=== PATIENT | female | born 1955 | race Caucasian/White ===

== ENCOUNTER → 2018-07-19 | Day surgery (SDC) | payer OTHER ==
[2018-07-17 12:21] VITALS: BMI 70.2
[~2018-07-19] MED LIST: LACTATED RINGERS 1,000 ML IV SCH; LIDOCAINE 1% 20 ML VIAL (10MG/ML) FOR IV START INTRADERMA ONE; PROPOFOL 10 MG/ML 20 ML VIAL IV ONE
--- NOTE | 2018-07-19 08:31 | P.GSHP ---
History of Present Illness H&P Date: 07/19/18 CHIEF COMPLAINT: Colon screen HISTORY OF PRESENT ILLNESS: The patient is a 62-year-old female who presents for colon screen. Lower endoscopy was offered for further evaluation and management. PAST MEDICAL HISTORY: Please see list. PAST SURGICAL HISTORY: Please see list. MEDICATIONS: Please see list. ALLERGIES: Please see list. SOCIAL HISTORY: No illicit drug use FAMILY HISTORY: No reports of Crohn disease or ulcerative colitis. REVIEW OF ORGAN SYSTEMS: CONSTITUTIONAL: No reports of fevers or chills. PHYSICAL EXAM: VITAL SIGNS: Stable GENERAL: Well-developed pleasant in no acute distress. HEENT: No scleral icterus. Extraocular movements grossly intact. Moist buccal mucosa. NECK: Supple without lymphadenopathy. CHEST: Unlabored respirations. Equal bilateral excursions. CARDIOVASCULAR: Regular rate and rhythm. Distal 2+ pulses. ABDOMEN: Soft, nontender, nondistended. MUSCULOSKELETAL: No clubbing, cyanosis, or edema. ASSESSMENT: 1. Colon screen. PLAN: 1. Recommend proceeding with a lower endoscopy Past Medical History Past Medical History: Cancer, Diabetes Mellitus, Hyperlipidemia, Hypertension Additional Past Medical History / Comment(s): ENDOMETRIAL CANCER History of Any Multi-Drug Resistant Organisms: None Reported Past Surgical History: Hysterectomy, Tubal Ligation Additional Past Surgical History / Comment(s): COLONOSCOPY. BILAT CATARACTS REMOVED Past Anesthesia/Blood Transfusion Reactions: No Reported Reaction Smoking Status: Never smoker - Past Family History Mother Family Medical History: No Reported History Medications and Allergies Home Medications Medication Instructions Recorded Confirmed Type Aspirin [Adult Low Dose Aspirin EC] 81 mg PO DAILY 07/17/18 07/17/18 History Candesartan [Atacand] 16 mg PO DAILY 07/17/18 07/17/18 History Lovastatin [Mevacor] 20 mg PO PC-SUPPER 07/17/18 07/17/18 History glipiZIDE XL [Glucotrol Xl] 20 mg PO DAILY 07/17/18 07/17/18 History metFORMIN HCL ER [Glucophage Xr] 1,000 mg PO BID-W/MEALS 07/17/18 07/17/18 History Allergies Allergy/AdvReac Type Severity Reaction Status Date / Time No Known Allergies Allergy Verified 07/17/18 12:15
[2018-07-19 08:40] LABS: Glucose,Whole Blood 145 mg/dL (75-99)
[2018-07-19 08:42] VITALS: RESP 16; TEMP 97.5
--- NOTE | 2018-07-19 09:13 | P.PCN ---
Date of Procedure: 07/19/18 Description of Procedure: PREOPERATIVE DIAGNOSIS: Personal history of colon polyps Colonoscopy screening. POSTOPERATIVE DIAGNOSIS: Personal history of colon polyps Colonoscopy screening. Diverticulosis, scattered. OPERATION: Colonoscopy to the ileocecal valve and appendiceal orifice. SURGEON: Carli Gonzáles MD. ANESTHESIA: MAC. INDICATIONS: The patient is a 62-year-old female who presents for colonoscopy screening. Last colonoscopy 10 years ago. Benefits and risks were described and informed consent was obtained. DESCRIPTION OF PROCEDURE: The patient had undergone Gatorade, MiraLAX and Dulcolax prep. He had been brought into the operating room and laid in the left lateral decubitus position. After adequate intravenous sedation, the rectum was examined with 2% lidocaine jelly. External hemorrhoids were encountered. The rectal tone was within normal limits. No lesions were palpated in the rectal vault. An Olympus colonoscope was advanced until the ileocecal valve and appendiceal orifice were clearly viewed. The prep was excellent with clear visualization of the mucosal folds. The scope was removed with visualization of each mucosal fold. Sigmoid diverticulosis was encountered. No colonic polyps were found. No evidence of focal colitis was found. Retroflexion of the scope demonstrated grade 1 internal hemorrhoids without active bleeding or inflammation. The colon was desufflated. The patient had tolerated the procedure well. Withdrawal time was over 6 minutes. FINDINGS: Internal hemorrhoids, grade 1 External prolapsed hemorrhoids. No arteriovenous malformations. No adenomatous polyps. No focal colitis. RECOMMENDATIONS: Lower endoscopy in 5 years, 2023 for personal history of colon polyps. Plan - Discharge Summary Discharge Rx Participant: No New Discharge Prescriptions: No Action Candesartan [Atacand] 16 mg PO DAILY glipiZIDE XL [Glucotrol Xl] 20 mg PO DAILY Lovastatin [Mevacor] 20 mg PO PC-SUPPER metFORMIN HCL ER [Glucophage Xr] 1,000 mg PO BID-W/MEALS Aspirin [Adult Low Dose Aspirin EC] 81 mg PO DAILY Discharge Medication List Aspirin [Adult Low Dose Aspirin EC] 81 mg PO DAILY 07/17/18 [History] Candesartan [Atacand] 16 mg PO DAILY 07/17/18 [History] Lovastatin [Mevacor] 20 mg PO PC-SUPPER 07/17/18 [History] glipiZIDE XL [Glucotrol Xl] 20 mg PO DAILY 07/17/18 [History] metFORMIN HCL ER [Glucophage Xr] 1,000 mg PO BID-W/MEALS 07/17/18 [History] Follow up Appointment(s)/Referral(s): Carli Gonzáles MD [STAFF PHYSICIAN] - As Needed Patient Instructions/Handouts: *[facility] - (Anesthesia) Endoscopy Discharge Instructions, Colonoscopy (DC), Diverticulosis Diet (GEN), Diverticulosis (GEN) Activity/Diet/Wound Care/Special Instructions: Repeat colonoscopy in 5 years, 2023 Discharge Disposition: HOME SELF-CARE
[2018-07-19 09:37] VITALS: BP 112/72; PULSE 68
== END | disposition home or self-care (01) ==
LOC: ORWHC2ENDO 08:06
PROVIDERS: ATTEND Surgery Plastic and Reconstructive Surgery
DX: Z12.11 Encounter for screening for malignant neoplasm of colon (principal); Z86.010 Personal history of colon polyps; K57.30 Diverticulosis of large intestine without perforation or abscess without bleeding; K64.0 First degree hemorrhoids; K64.8 Other hemorrhoids; I10 Essential (primary) hypertension; E11.9 Type 2 diabetes mellitus without complications; E78.5 Hyperlipidemia, unspecified; Z85.42 Personal history of malignant neoplasm of other parts of uterus; Z79.82 Long term (current) use of aspirin; Z79.84 Long term (current) use of oral hypoglycemic drugs; Z79.899 Other long term (current) drug therapy
CPT/HCPCS: J2704; G0105

== ENCOUNTER → 2019-08-09 | Outpatient (CLI) | payer OTHER ==
--- NOTE | 2019-08-09 10:28 | XR ---
EXAMINATION TYPE: XR chest 2V DATE OF EXAM: 08/09/2019 COMPARISON: NONE HISTORY: Dyspnea TECHNIQUE: Frontal and lateral views of the chest are obtained. FINDINGS: There is no focal air space opacity, pleural effusion, or pneumothorax seen. The cardiac silhouette size is within normal limits. The osseous structures are intact. Aorta is dense. IMPRESSION: No acute cardiopulmonary process.
--- NOTE | 2019-08-09 16:33 | ECHOF ---
Referral Reason:R06.00 Dyspnea MEASUREMENTS -------- HEIGHT: 157.5 cm WEIGHT: 83.0 kg BP: IVSd: 1.1 cm (0.6 - 1.1) LVIDd: 3.9 cm (3.9 - 5.3) LVPWd: 1.3 cm (0.6 - 1.1) IVSs: 1.4 cm LVIDs: 3.3 cm LVPWs: 1.0 cm RVIDd: 3.2 cm (< 3.3) Ao Diam: 2.5 cm (2.0 - 3.7) AV Cusp: 1.8 cm (1.5 - 2.6) EPSS: 0.2 cm MV E Johnathan: 0.62 m/s MV DecT: 171 ms MV A Johnathan: 0.81 m/s MV E/A Ratio: 0.76 RAP: 5.00 mmHg RVSP: 24.52 mmHg MV EF SLOPE: 87.82 mm/s (70 - 150) MV EXCURSION: 20.17 mm (> 18.000) FINDINGS -------- Sinus rhythm. This was a technically good study. LV size, wall thickness and systolic function are normal, with an EF greater than 55%. Overall left ventricular systolic function is normal with, an EF between 55 - 60 %. The right ventricle is normal in size. The left atrial size is normal. The right atrial size is normal. There is mild aortic valve sclerosis. There is no evidence of aortic regurgitation. Mild mitral annular calcification present. Mild mitral regurgitation is present. Mild tricuspid regurgitation present. Right ventricular systolic pressure is normal at < 35 mmHg. There is no evidence of pulmonary hypertension. There is no pulmonic regurgitation present. The aortic root size is normal. There is no pericardial effusion. CONCLUSIONS -------- 1. Sinus rhythm. 2. This was a technically good study. 3. LV size, wall thickness and systolic function are normal, with an EF greater than 55%. 4. Overall left ventricular systolic function is normal with, an EF between 55 - 60 %. 5. The right ventricle is normal in size. 6. The left atrial size is normal. 7. The right atrial size is normal. 8. There is mild aortic valve sclerosis. 9. Mild mitral annular calcification present. 10. Mild mitral regurgitation is present. 11. Mild tricuspid regurgitation present. 12. Right ventricular systolic pressure is normal at < 35 mmHg. 13. There is no evidence of pulmonary hypertension. 14. There is no pulmonic regurgitation present. 15. The aortic root size is normal. 16. There is no pericardial effusion. LOG TURNER: Cynthia Zhang RDCS
== END | disposition home or self-care (01) ==
LOC: RADECHMAIN 08:06
PROVIDERS: ATTEND Family Medicine
DX: I08.1 Rheumatic disorders of both mitral and tricuspid valves (principal)
CPT/HCPCS: 71046; 93306

== ENCOUNTER → 2023-03-21 | Outpatient (CLI) | payer MEDICARE, OTHER ==
--- NOTE | 2023-03-21 12:15 | CT ---
EXAMINATION TYPE: CT brain wo con DATE OF EXAM: 03/21/2023 COMPARISON: None HISTORY: NOSEBLEED FOR TWO DAYS CT DLP: 1064.30 mGycm Automated exposure control for dose reduction was used. FINDINGS: Partially in the sella turcica. Cerebellar tonsils low-lying at the level of foramen magnum. There is no mass effect or midline shift. No acute hemorrhage. Mild hypoattenuation within the white matter is nonspecific. Calvarium is intact orbits are symmetric. Mild chronic sinusitis.. IMPRESSION: 1. No acute intracranial hemorrhage or mass effect. 2. Nonspecific white matter changes most typical of remote white matter ischemia. Correlate with MRI as clinically warranted.
== END | disposition home or self-care (01) ==
LOC: RADCTMAIN 11:16
PROVIDERS: ATTEND Family Medicine
DX: R90.82 White matter disease, unspecified (principal); I67.82 Cerebral ischemia; R51.9 Headache, unspecified
CPT/HCPCS: 70450

== ENCOUNTER 2024-04-18 07:20 | Day surgery (SDC) | payer MEDICARE ==
[2024-04-17 13:32] VITALS: BMI 29.2
--- NOTE | 2024-04-18 07:42 | P.GSHP ---
History of Present Illness H&P Date: 04/18/24 CHIEF COMPLAINT: Colon screen HISTORY OF PRESENT ILLNESS: The patient is a 68-year-old female who presents for colon screen. Lower endoscopy was offered for further evaluation and management. PAST MEDICAL HISTORY: Please see list. PAST SURGICAL HISTORY: Please see list. MEDICATIONS: Please see list. ALLERGIES: Please see list. SOCIAL HISTORY: No illicit drug use FAMILY HISTORY: No reports of Crohn disease or ulcerative colitis. REVIEW OF ORGAN SYSTEMS: CONSTITUTIONAL: No reports of fevers or chills. PHYSICAL EXAM: VITAL SIGNS: Stable GENERAL: Well-developed pleasant in no acute distress. HEENT: No scleral icterus. Extraocular movements grossly intact. Moist buccal mucosa. NECK: Supple without lymphadenopathy. CHEST: Unlabored respirations. Equal bilateral excursions. CARDIOVASCULAR: Regular rate and rhythm. Distal 2+ pulses. ABDOMEN: Soft, nontender, nondistended. MUSCULOSKELETAL: No clubbing, cyanosis, or edema. ASSESSMENT: 1. Colon screen. PLAN: 1. Recommend proceeding with a lower endoscopy Past Medical History Past Medical History: Cancer, Diabetes Mellitus, GERD/Reflux, Hyperlipidemia, Hypertension Additional Past Medical History / Comment(s): ENDOMETRIAL CANCER-no chemo no r adiation. Type II diabetic. Occasional acid reflux. History of Any Multi-Drug Resistant Organisms: None Reported Past Surgical History: Hysterectomy, Tubal Ligation Additional Past Surgical History / Comment(s): COLONOSCOPY. BILAT CATARACTS REMOVED Past Anesthesia/Blood Transfusion Reactions: No Reported Reaction Additional Past Anesthesia/Blood Transfusion Reaction / Comment(s): No hx of blood transfusion to date. Smoking Status: Never smoker - Past Family History Mother Family Medical History: No Reported History Sister(s) Additional Family Medical History / Comment(s): Melvin disease. Medications and Allergies Home Medications Medication Instructions Recorded Confirmed Type Candesartan [Atacand] 16 mg PO QAM 07/17/18 04/17/24 History Lovastatin [Mevacor] 40 mg PO QAM 07/17/18 04/17/24 History Dulaglutide [Trulicity] 4.5 mg SQ MO 04/17/24 04/17/24 History Empagliflozin [Jardiance] 25 mg PO QAM 04/17/24 04/17/24 History Repaglinide [Prandin] 0.5 mg PO AC-TID 04/17/24 04/17/24 History Allergies Allergy/AdvReac Type Severity Reaction Status Date / Time Injectable diabetic AdvReac Caused Uncoded 04/17/24 13:19 medication bruising
[2024-04-18 08:00] VITALS: TEMP 96.6
[2024-04-18] MEDS: IV FLUID CONTINUATION 1,000 ML IV ONE (08:00)
[2024-04-18] MEDS: LACTATED RINGERS 1,000 ML IV SCH (08:00)
[2024-04-18 08:11] LABS: Glucose,Whole Blood 81 mg/dL (70-110)
[2024-04-18] MEDS ORDERED: PROPOFOL 10 MG/ML 20 ML VIAL IV ONE (08:18)
[2024-04-18] MEDS ORDERED: PHENYLEPHRINE-0.9% NACL SYG 1,000 MCG/10 ML SYRINGE ONE (08:18)
--- NOTE | 2024-04-18 08:54 | P.PCN ---
Date of Procedure: 04/18/24 Description of Procedure: PREOPERATIVE DIAGNOSIS: Family history colon cancer Family history Melvin syndrome Colonoscopy screening. POSTOPERATIVE DIAGNOSIS: Colonoscopy screening. Diverticulosis, scattered. OPERATION: Colonoscopy to the cecum, ileocecal valve and appendiceal orifice. SURGEON: Carli Gonzáles MD. ANESTHESIA: MAC. INDICATIONS: The patient is a 68-year-old female who presents for colonoscopy screening. Last colonoscopy over 5 years ago. Benefits and risks were described and inform ed consent was obtained. DESCRIPTION OF PROCEDURE: The patient had undergone Sutab prep. The patient had been brought into the operating room and laid in the left lateral decubitus position. After adequate intravenous sedation, the rectum was examined with 2% lidocaine jelly. No external hemorrhoids were encountered. The rectal tone was within normal limits. No lesions were palpated in the rectal vault. An Olympus colonoscope was advanced until the cecum, ileocecal valve and appendiceal orifice were clearly viewed. Abdominal pressure was used to advance of colonoscope. The prep was good. Few scattered diverticulosis was encountered. No colonic polyps were found. No evidence of focal colitis was found. Retroflexion of the scope demonstrated grade 2 internal hemorrhoids without active bleeding or inflammation. The colon was desufflated. The patient had tolerated the procedure well. Withdrawal time was over 6 minutes. FINDINGS: Aronchick preparation quality scale 2+ (1-5) Internal hemorrhoids, grade 1 No external prolapsed hemorrhoids. No arteriovenous malformations. No adenomatous polyps. No focal colitis. Few scattered diverticulosis RECOMMENDATIONS: Lower endoscopy in 5 years, 2028 Plan - Discharge Summary Discharge Rx Participant: No New Discharge Prescriptions: Continue Candesartan [Atacand] 16 mg PO QAM Lovastatin [Mevacor] 40 mg PO QAM Repaglinide [Prandin] 0.5 mg PO AC-TID Empagliflozin [Jardiance] 25 mg PO QAM Dulaglutide [Trulicity] 4.5 mg SQ MO Discharge Medication List Candesartan [Atacand] 16 mg PO QAM 07/17/18 [History] Lovastatin [Mevacor] 40 mg PO QAM 07/17/18 [History] Dulaglutide [Trulicity] 4.5 mg SQ MO 04/17/24 [History] Empagliflozin [Jardiance] 25 mg PO QAM 04/17/24 [History] Repaglinide [Prandin] 0.5 mg PO AC-TID 04/17/24 [History] Follow up Appointment(s)/Referral(s): Carli Gonzáles MD [STAFF PHYSICIAN] - As Needed Patient Instructions/Handouts: Diverticulosis (ED), Diverticulitis Diet (DC) Activity/Diet/Wound Care/Special Instructions: Repeat colonoscopy 5 years, 2028 Discharge Disposition: HOME SELF-CARE
[2024-04-18 09:16] VITALS: BP 105/54; PULSE 73; RESP 16
== END 2024-04-18 10:04 | disposition home or self-care (01) ==
LOC: ORWHC2ENDO 07:20
PROVIDERS: ATTEND Surgery Plastic and Reconstructive Surgery
DX: Z12.11 Encounter for screening for malignant neoplasm of colon (principal); K57.30 Diverticulosis of large intestine without perforation or abscess without bleeding; Z80.0 Family history of malignant neoplasm of digestive organs; K21.9 Gastro-esophageal reflux disease without esophagitis; I10 Essential (primary) hypertension; E11.9 Type 2 diabetes mellitus without complications; E78.5 Hyperlipidemia, unspecified; Z85.42 Personal history of malignant neoplasm of other parts of uterus; Z79.84 Long term (current) use of oral hypoglycemic drugs; Z79.899 Other long term (current) drug therapy; Z88.8 Allergy status to other drugs, medicaments and biological substances
CPT/HCPCS: J2704; J2371; G0105

== ENCOUNTER → 2024-07-12 | Outpatient (CLI) | payer MEDICARE ==
--- NOTE | 2024-07-12 11:35 | MM ---
Reason for Exam: Screening (asymptomatic). Patient History: Menarche at age 13. First Full-Term at age 19. Left ovary removed at age 56. Right ovary removed at age 56. Hysterectomy at age 56. Postmenopausal. Risk Values: Kamala 5 year model risk: 1.2%. NCI Lifetime model risk: 4.0%. Tissue Density: There are scattered areas of fibroglandular density. Findings: Analyzed By CAD. Right breast: There is no suspicious group of microcalcifications or new suspicious mass. Left breast: There is no suspicious group of microcalcifications or new suspicious mass. Overall Assessment: Negative, BI-RAD 1 Management: Screening Mammogram of both breasts in [address] [facility] will attempt to contact patient to return for supplemental views and ultrasound if indicated. Patient should continue monthly self-breast exams. A clinical breast exam by your physician is recommended on an annual basis. This exam should not preclude additional follow-up of suspicious palpable abnormalities. Note on Kamala scores and lifetime risk: 1. A Kamala score greater than 3% is considered moderate risk. If this is the case, consider specialist referral to assess eligibility for a risk reducing agent. 2. If overall lifetime risk for the development of breast cancer is 20% or higher, the patient may qualify for future screening with alternating mammogram and breast MRI. [facility], , 07/12/2024 11:32 AM. Electronically signed and approved by: Ethan Brown DO
== END | disposition home or self-care (01) ==
LOC: RADMAMWWP 06:50
PROVIDERS: ATTEND Family Medicine
DX: Z12.31 Encounter for screening mammogram for malignant neoplasm of breast (principal); R92.323 Mammographic fibroglandular density, bilateral breasts; Z78.0 Asymptomatic menopausal state; Z90.722 Acquired absence of ovaries, bilateral
CPT/HCPCS: 77063; 77067

== ENCOUNTER 2024-12-29 21:00 | Emergency (ER) | payer MEDICARE ==
--- NOTE | 2024-12-29 21:21 | ED ---
Headache HPI - General Chief Complaint: Headache Stated Complaint: Post-Op Complications, Headache, Nausea Time Seen by Provider: 12/29/24 21:15 Mode of arrival: ambulatory Limitations: no limitations - History of Present Illness Initial Comments: 69-year-old female presents to the emergency department with headache and nausea. Reports to eye surgery today at [facility]. Patient had retinal reattachment. States that shortly after work she got home she began having nausea with vomiting and a frontal headache which is mostly located on the left side of her head. She called the eye care center who called into eyedrops and Diamox for her. These were recommendations by Dr. Constantine Betancourt. The patient states that there was no pharmacies that were open and therefore she decided to come to the hospital to get these medications. She does provide me with the contact information for the office. Her procedure was performed by Dr. Alba. Patient is wearing an eye patch and therefore cannot sense any eye changes. No report of any confusion. No fevers. No other alleviating, precipitating roughing factors - Related Data Home Medications Medication Instructions Recorded Confirmed Candesartan [Atacand] 16 mg PO QAM 07/17/18 04/18/24 Lovastatin [Mevacor] 40 mg PO QAM 07/17/18 04/18/24 Dulaglutide [Trulicity] 4.5 mg SQ MO 04/17/24 04/18/24 Empagliflozin [Jardiance] 25 mg PO QAM 04/17/24 04/18/24 Repaglinide [Prandin] 0.5 mg PO AC-TID 04/17/24 04/18/24 Allergies Allergy/AdvReac Type Severity Reaction Status Date / Time Injectable diabetic AdvReac Caused Uncoded 12/29/24 21:18 medication bruising Review of Systems ROS Statement: Those systems with pertinent positive or pertinent negative responses have been documented in the HPI. ROS Other: All systems not noted in ROS Statement are negative. Past Medical History Past Medical History: Cancer, Diabetes Mellitus, GERD/Reflux, Hyperlipidemia, Hypertension Additional Past Medical History / Comment(s): ENDOMETRIAL CANCER-no chemo no radiation. Type II diabetic. Occasional acid reflux. History of Any Multi-Drug Resistant Organisms: None Reported Past Surgical History: Hysterectomy, Tubal Ligation Additional Past Surgical History / Comment(s): COLONOSCOPY. BILAT CATARACTS REMOVED. LEFT EYE RETINA REATTACHMENT 7/19/25 Past Anesthesia/Blood Transfusion Reactions: No Reported Reaction Additional Past Anesthesia/Blood Transfusion Reaction / Comment(s): No hx of blood transfusion to date. Past Psychological History: No Psychological Hx Reported Smoking Status: Never smoker Past Alcohol Use History: None Reported Past Drug Use History: None Reported - Past Family History Mother Family Medical History: No Reported History Sister(s) Additional Family Medical History / Comment(s): Melvin disease. General Exam Limitations: no limitations General appearance: alert, in no apparent distress Head exam: Present: atraumatic, normocephalic, normal inspection Eye exam: Present: conjunctival injection, other (The left pupil is irregularly shaped. Significant chemosis and erythema to the conjunctiva). Absent: scleral icterus, periorbital swelling ENT exam: Present: normal exam, mucous membranes moist Neck exam: Present: normal inspection. Absent: tenderness, meningismus, lymphadenopathy Respiratory exam: Present: normal lung sounds bilaterally. Absent: respiratory distress, wheezes, rales, rhonchi, stridor Cardiovascular Exam: Present: regular rate, normal rhythm, normal heart sounds. Absent: systolic murmur, diastolic murmur, rubs, gallop, clicks GI/Abdominal exam: Present: soft, normal bowel sounds. Absent: distended, tenderness, guarding, rebound, rigid Extremities exam: Present: normal inspection, full ROM, normal capillary refill. Absent: tenderness, pedal edema, joint swelling, calf tenderness Back exam: Present: normal inspection Neurological exam: Present: alert, oriented X3, CN II-XII intact Psychiatric exam: Present: normal affect, normal mood Skin exam: Present: warm, dry, intact, normal color. Absent: rash Course Vital Signs 12/29/24 12/30/24 12/30/24 21:14 01:28 02:05 Temperature 98 F 98.2 F Pulse Rate 83 75 Respiratory 18 15 Rate Blood Pressure 162/82 134/87 O2 Sat by Pulse 98 95 Oximetry Medical Decision Making - Medical Decision Making Was pt. sent in by a medical professional or institution (, PA, ORDER DESK CLERK, urgent care, hospital, or [facility]...) When possible be specific @ -Patient was sent in by her eye doctor Did you speak to anyone other than the patient for history (EMS, parent, family, police, friend...)? What history was obtained from this source @ -I spoke with Dr. Betancourt who is the on-call tape transferrer at [facility] [place] -[phone] Did you review nursing and triage notes (agree or disagree)? Why? @ -I reviewed and agree with nursing and triage notes Were old charts reviewed (outside hosp., previous admission, EMS record, old EKG, old radiological studies, urgent care reports/EKG's, [facility] records)? Report findings @ -No old charts were reviewed Differential Diagnosis (chest pain, altered mental status, abdominal pain women, abdominal pain men, vaginal bleeding, weakness, fever, dyspnea, syncope, headache, dizziness, GI bleed, back pain, seizure, CVA, palpatations, mental health, musculoskeletal)? @ -Differential Headache: Migraine, tension, cluster, carbon monoxide, central venous thrombosis, pension karma temporal arteritis, acute closure glaucoma, intercranial hemorrhage, mastoiditis, sinusitis, head injury, this is not meant to be an all-inclusive list. EKG interpreted by me (3pts min.). @ -Not done X-rays interpreted by me (1pt min.). @ -None done CT interpreted by me (1pt min.). @ -None done U/S interpreted by me (1pt. min.). @ -None done What testing was considered but not performed or refused? (CT, X-rays, U/S, labs)? Why? @ -None What meds were considered but not given or refused? Why? @ -None Did you discuss the management of the patient with other professionals (professionals i.e. , PA, ORDER DESK CLERK, lab, RT, psych nurse, manager social media, tying machine operator lumber, teacher, lead security officer, piano case maker)? Give summary @ -I spoke with Dr. Betancourt. He recommends brimonidine eyedrops, Cosopt eyedrops and Diamox Was smoking cessation discussed for >3mins.? @ -No Was critical care preformed (if so, how long)? @ -No Were there social determinants of health that impacted care today? How? (Homelessness, low income, unemployed, alcoholism, drug addiction, transportation, low edu. Level, literacy, decrease access to med. care, nursing home, rehab)? @ -No Was there de-escalation of care discussed even if they declined (Discuss DNR or withdrawal of care, Hospice)? DNR status @ -No What co-morbidities impacted this encounter? (DM, HTN, Smoking, COPD, CAD, Cancer, CVA, ARF, Chemo, Hep., AIDS, mental health diagnosis, sleep apnea, morbid obesity)? @ -Retinal detachment Was patient admitted / discharged? Hospital course, mention meds given and route, prescriptions, significant lab abnormalities, going to OR and other pertinent info. @ -Upon arrival patient seen and evaluated in bed 16. Thorough history and physical exam was performed. I immediately called Dr. Betancourt. He suspects that the patient is having increased intraocular pressure and therefore recommends brimonidine eyedrops 3 times a day, Cosopt eyedrops twice a day and Diamox 500 mg twice a day. I did measure intraocular pressures for which she did state that was okay in the bilateral eyes. He was okay with me removing the eye patch. Intraocular pressure in the affected eye is 64. Unaffected eye is 13. I did administer Cosopt eyedrops every hour for 3 hours. I also administered the brimonidine eyedrop. Patient was given intravenous Diamox 500 mg. I did repeat the patient's intraocular pressures every hour. The affected eye has gone up to 73. Patient states that she feels improved and wants to go home. I did call and speak with Dr. Betancourt again. Informed him that I am highly concerned for the increase in intraocular pressure with no response to the current treatments. I informed him that the patient is adamant that she wants to go home. He states that the patient may go home and the eyedrops and oral Diamox which has already been called into the pharmacy by him. He would like her to have another Diamox to go home with to take before she goes to bed. He is aware of the significantly elevated intraocular pressures. States that the patient would not benefit from transfer as further treatment would include intraocular drainage which cannot be performed in the patient's current situation. He states that the office will call the patient in the morning and set up an office appointment for tomorrow. Patient was highly in agreement with this treatment plan as she did not want to wait in the emergency department any longer. Patient was discharged with a very guarded prognosis. Informed her of my concern of permanent vision loss for which she was understanding of this risk. Patient discharged Undiagnosed new problem with uncertain prognosis? @ -Yes Drug Therapy requiring intensive monitoring for toxicity (Heparin, Nitro, Insulin, Cardizem)? @ -No Were any procedures done? @ -No Diagnosis/symptom? @ -Acute cephalgia, increased intraocular pressure left eye, status post left eye retinal reattachment Acute, or Chronic, or Acute on Chronic? @ -Acute Uncomplicated (without systemic symptoms) or Complicated (systemic symptoms)? @ -Complicated Side effects of treatment? @ -No Exacerbation, Progression, or Severe Exacerbation? @ -No Poses a threat to life or bodily function? How? (Chest pain, [place], ID, pneumonia, PE, COPD, DKA, ARF, appy, cholecystitis, CVA, Diverticulitis, Homicidal, Suicidal, threat to staff... and all critical care pts) @ -Yes as I am concerned for permanent vision loss Disposition Clinical Impression: Head ache, Increased intraocular pressure Disposition: HOME SELF-CARE Condition: Stable Instructions (If sedation given, give patient instructions): Acute Headache (ED) Additional Instructions: Please use the brimonidine drops three times per day - 1 drop to left eye Use the Cosopt drops twice a day - 1 drop to left eye Take the Diamox twice a day. The office should call you tomorrow to check up on you and provide you with further instructions for evaluation Is patient prescribed a controlled substance at d/c from ED?: No Referrals: Vasu Ivy DO [Primary Care Provider] - 1-2 days Time of Disposition: 01:35
[2024-12-29] MEDS: DORZOLAMIDE-TIMOLOL 2.23%/0.68 10ML BTL LEFT EYE SCH (22:29)
[2024-12-29] MEDS: BRIMONIDINE TARTRATE 0.2% DROPS 5 ML BTL LEFT EYE ONE (22:29)
[2024-12-30 01:30] VITALS: BP 134/87; PULSE 75; RESP 15
[2024-12-30] MEDS: acetaZOLAMIDE 250 MG TAB PO STA (01:56)
[2024-12-30 02:07] VITALS: TEMP 98.2
== END 2024-12-30 02:07 | disposition home or self-care (01) ==
LOC: EC 21:00
DX: H40.052 Ocular hypertension, left eye (principal); Z88.8 Allergy status to other drugs, medicaments and biological substances
CPT/HCPCS: 99284; J1120